=== PATIENT | female | born 1975 | race Hispanic/Latino ===

== ENCOUNTER 2017-02-14 15:57 | Inpatient (IN) | payer MEDICAID, OTHER ==
[2017-02-14 15:58] VITALS: BMI 25.6
[2017-02-14 17:22] LABS: BASO # 0.1 K/uL (0.0-0.2); BASO % 0.9 % (0.0-2.0); EOS # 0.2 K/uL (0.0-0.7); EOS % 2.5 % (0.0-4.0); HEMATOCRIT 39.2 % (34.0-47.0); LYMPH # 2.5 K/uL (1.0-4.3); LYMPH % 28.2 % (20.0-40.0); MEAN CELL VOLUME 86.7 fL (81.0-99.0); MEAN CORPUSCULAR HEMOGLOBIN 29.9 pg (27.0-31.0); MEAN CORPUSCULAR HGB CONC 34.5 g/dL (33.0-37.0); MONO # 0.9 K/uL (0.0-0.8); MONO % 9.7 % (0.0-10.0); RED CELL DISTRIBUTION WIDTH 13.3 % (11.5-14.5); WHITE BLOOD COUNT 8.9 K/uL (4.8-10.8)
[2017-02-14 17:39] LABS: CHLORIDE 92 mmol/L (98-107); POTASSIUM 3.5 mmol/L (3.6-5.2); SODIUM 133 mmol/L (132-148)
[2017-02-14 17:41] LABS: GFR AFRICAN-AMERICAN > 60
[2017-02-14 17:42] LABS: ALB/GLOB RATIO 1.3 (1.0-2.1); ALKALINE PHOSPHATASE 77 U/L (38-126); ALT/SGPT 45 U/L (9-52); AST/SGOT 35 U/L (14-36); BILIRUBIN,TOTAL 0.7 mg/dL (0.2-1.3); BLOOD UREA NITROGEN 9 mg/dL (7-17); CALCIUM 8.8 mg/dl (8.6-10.4); CARBON DIOXIDE 32 mmol/L (22-30); GLUCOSE,RANDOM 100 mg/dL (65-105); TOTAL PROTEIN 7.2 g/dL (6.3-8.3)
[2017-02-14 17:43] LABS: ALCOHOL SERUM < 10 mg/dl (0-10)
[2017-02-14 17:54] LABS: RBC URINE < 1 /hpf (0-3); URINE BACTERIA OCC (<OCC); URINE BILIRUBIN NEGATIVE (NEGATIVE); URINE BLOOD 1+ (NEGATIVE); URINE COLOR Yellow (YELLOW); URINE GLUCOSE (UA) NORMAL (Normal); URINE KETONE NEGATIVE (NEGATIVE); URINE LEUKOCYTE ESTERASE NEG Leu/uL (Negative); URINE PROTEIN NEGATIVE (NEGATIVE); URINE UROBILINOGEN NORMAL mg/dL (0.2-1.0); WBC URINE 1 /hpf (0-5)
--- NOTE | 2017-02-14 18:09 | C.PDOC ---
History Of Present Illness 41 y/o female with Hx of poly substance abuse and HTN presents to ED feeling suicidal and wants to cut herself. Patient states she has never cut herself before and states she wants to do it because she lost her job and apartment. Patient also reports she used Heroin after 6 months of sobriety, last used yesterday. Patient denies fever, headache, sob, n/v, abdominal pain or any other complaints at this time. Time Seen by Provider: 02/14/17 16:38 Chief Complaint (Nursing): Psychiatric Evaluation History Per: Patient History/Exam Limitations: no limitations Onset/Duration Of Symptoms: Days Current Symptoms Are (Timing): Still Present Suicide/Self Injury Attempted (Context): None Past Medical History Reviewed: Historical Data, Nursing Documentation, Vital Signs Vital Signs: Last Vital Signs Temp 97.9 F 02/14/17 16:09 Pulse 89 02/14/17 16:09 Resp 20 02/14/17 16:09 BP 129/87 02/14/17 16:09 Pulse Ox 98 02/14/17 18:12 - Medical History PMH: Anxiety, Depression, HTN Surgical History: No Surg Hx - [facility] Procedures APPLICATION OF SPLINT (05/06/13) CL FX REDUC-FINGER (05/06/13) DETOXIFICATION SERVICES FOR SUBSTANCE ABUSE TREATMENT (02/24/16) ENDOMETRIAL ABLATION (01/24/13) GROUP PSYCHOTHERAPY (02/24/16) HYSTEROSCOPY (01/24/13) INDIVIDUAL PSYCHOTHERAPY, SUPPORTIVE (12/08/15) MEDS MGMT FOR SUBSTANCE ABUSE TREATMENT, OTH REPL MED (02/24/16) NEBULIZER THERAPY (02/09/13) Family History: States: No Known Family Hx - Social History Hx Tobacco Use: Yes Hx Alcohol Use: Yes Hx Substance Use: Yes - Immunization History Hx Tetanus Toxoid Vaccination: Yes Hx Influenza Vaccination: No Hx Pneumococcal Vaccination: No Review Of Systems Except As Marked, All Systems Reviewed And Found Negative. Constitutional: Negative for: Fever, Chills Cardiovascular: Negative for: Chest Pain Respiratory: Negative for: Shortness of Breath Gastrointestinal: Negative for: Nausea, Vomiting Skin: Negative for: Rash Neurological: Negative for: Weakness, Numbness Psych: Positive for: Suicidal ideation Physical Exam - Physical Exam Appears: Non-toxic, Other (disheveled ) Skin: Normal Color, Warm, Dry, No Rash Head: Atraumatic, Normacephalic Eye(s): bilateral: Normal Inspection Oral Mucosa: Moist Neck: Normal ROM, Supple Chest: Symmetrical Cardiovascular: Rhythm Regular, No Murmur Respiratory: Normal Breath Sounds, No Rales, No Rhonchi, No Wheezing Gastrointestinal/Abdominal: Soft, No Tenderness, No Guarding, No Rebound Neurological/Psych: Oriented x3 ED Course And Treatment - Laboratory Results Result Diagrams: 02/14/17 17:14 02/14/17 17:14 O2 Sat by Pulse Oximetry: 98 (RA) Pulse Ox Interpretation: Normal Medical Decision Making Medical Decision Making: Plan: Blood work Request crisis evaluation Disposition - Disposition Disposition: HOSPITALIZED Disposition Time: 18:42 Condition: GUARDED Forms: [facility] (Irish) - Clinical Impression Clinical Impression: Opioid abuse, Moderate major depression, single episode - Scribe Statement The provider has reviewed the documentation as recorded by the Scribe Dianelys Sotelo All medical record entries made by the Scribe were at my direction and personally dictated by me. I have reviewed the chart and agree that the record accurately reflects my personal performance of the history, physical exam, medical decision making, and the department course for this patient. I have also personally directed, reviewed, and agree with the discharge instructions and disposition. Decision To Admit - Pt Status Changed To: Hospital Disposition Of: Inpatient - Admit Certification Admit to Inpatient:: After my assessment, the patient will require hospitalization for at least two midnights. This is because of the severity of symptoms shown, intensity of services needed, and/or the medical risk in this patient being treated as an outpatient. - InPatient: Physician Admission Certification: I certify that this patient requires 2 or more midnights of care for the following reason:: needs inpatient psych - . Bed Request Type: Psychiatry Admitting Physician: Priscilla Woodward Patient Diagnosis: Opioid abuse, Moderate major depression, single episode
[2017-02-14] MEDS ORDERED: Aluminum Hydroxide/Magnesium Hydroxide Susp (30 mL) PO PRN (21:37)
--- NOTE | 2017-02-14 22:31 | PCM.BM ---
<Myah Haywood - Last Filed: 02/14/17 22:29> Treatment Plan Problems - Problems identified on initial assessmt Depression Date Initiated: 02/14/17 Time Initiated: 20:45 Assessment reference: NA Status: Active Substance Abuse Date Initiated: 02/14/17 Time Initiated: 20:45 Assessment reference: NA Status: Active Treatment assets and liabiliti Patient Assests: adapts well, cooperative, ADL independent, physically healthy, negotiates basic needs, cognitively intact Patient Liabilities: live alone (Homeless), financial problems, poor support system, substance abuse (Opiates) - Milieu Protocol Maintain good personal hygiene: daily Encourage regular showers, daily Remind patient to perform daily oral care, daily Assist patient to perform ADL's (Self) , other Assist patient to perform ADL's Conduct patient checks and document Observation sheet: Q15 minutes (Safety) Maintain personal safety: every shift Educate patient to report safety concerns to staff, every shift Monitor environment for contraband/sharps Medication safety: Monitor for expected outcome, potential side effects: every shift, Assess barriers to learning: every shift, Assess readiness for medication education: every shift <Lisa Casas - Last Filed: 02/16/17 11:29> Family Contact Family involvement: Famliy/SO not involved - Goals for Treatment Patient goals for treatment: "I want to go back to AA/NA Meetings." Discharge/Continuing Care - Education Needs Education Needs: Patient Medication, Patient Coping Skills, Patient Placement options, Patient Community resources - Discharge Discharge Criteria: Tolerates medication w/o severe side effects, Free of Suicidal thoughts, No longer exhibiting s/s of withdrawal Discharge to:: Custodial - Treatment Team Participation Discussed with Family/SO: No Was Patient/Family/SO present at Treatment Team Meeting: Yes <Nicolasa Whiting - Last Filed: 02/16/17 11:31> - Diagnosis (1) Bipolar disorder, current episode mixed, moderate Status: Acute Interventions: 02/16/17 11:30 * Assess/adjust medications daily and /or as needed * See patient on an individual basis 7x/week to assess level of manic behaviors and stability * Discuss risks, benefits, side effects and alternatives of medications * (2) Opioid dependence Status: Acute Interventions: 02/16/17 11:30 * Assess 7x/week regarding severity of withdrawal * Educate regarding risks, benefits, side effects and alternatives of medications * Use Motivational Interviewing for abstinence * Use CBT for relapse prevention * Medication management for withdrawal symptoms * Encourage medication assisted treatment *
--- NOTE | 2017-02-15 09:48 | PCM.PSYCH ---
Initial Psychiatric Evaluation - Initial Psychiatric Evaluation Type of Admission: Voluntary Legal Status: Capacity Chief Complaint (in patient's own words): "I'm going downhill." History of Present Illness and Precipitating Events: Pt. is seen, chart reviewed, case discussed with staff. This is a 41 y/o female who presented to the ED feeling suicidal and wanting to cut herself. She claims she recently lost both her job and apartment and felt suicidal afterwards. Pt. is known from previous admission last year here at [facility] for JOSE and polysubstance use. Currently, pt. complains mostly of heightened anxiety and withdrawal sxs.--sweating, freezing, tearing, runny nose, and muscle aches. Pt. reports to using 5-10 bags of heroin intranasal daily for the past 2 weeks. She also drinks 1 pint of vodka mostly everyday. Last drink she had was 2 nights ago. Her longest period of sobriety was for 6 months. Pt. denies hx. of seizures of DTs. Pt. also reports to smoking 1 pack of cigarettes daily. Pt. says she went to 2 rehabs in the past, from May.-Jun. and then July-August. From there, she went to [place] in [place]. Currently, pt. reports to having depressed mood and decreased energy and concentration. Pt. reports poor sleep but denies visual and auditory hallucinations. Pt. admits to having racing thoughts and anxiety. Past Psych Hx: JOSE, depression, no denice or psychosis; no suicide attempts or admissions; admission at [facility] last year; 2 rehabs, [place] Fam Psych Hx: mother--depression, SI; both mother and father MedHx: HTN Social Hx: ; 3 children (4, 7, 9 y/o); lives alone in a alf; currently unemployed After care discussed. Pt. plans to go back into a alf after discharge. Current Medications: Active Medications Generic Name Dose Route Start Last Admin Trade Name Freq PRN Reason Stop Dose Admin Al Hydrox/Mg Hydrox/Simethicone 30 ml 02/14/17 21:37 Maalox 30 Ml PO TID PRN Indigestion / Heartburn Amlodipine Besylate 5 mg 02/15/17 10:00 Norvasc PO DAILY ROSEANNA Clonidine HCl 0.1 mg 02/14/17 21:37 Catapres PO Q8 PRN COWS Score More or Equal to 5 Hydroxyzine HCl 50 mg 02/14/17 21:48 Atarax PO Q6H PRN Anxiety Ibuprofen 600 mg 02/14/17 21:48 Motrin Tab PO Q6H PRN Pain, moderate (4-7) Loperamide HCl 2 mg 02/14/17 21:37 Imodium PO Q8 PRN Diarrhea Methadone HCl 10 mg 02/15/17 09:30 Methadone PO 02/19/17 09:29 Q24H ROSEANNA Taper Ondansetron HCl 4 mg 02/14/17 21:37 Zofran Tab PO Q8 PRN Nausea/Vomiting Pneumococcal Polyvalent Vaccine 0.5 ml 02/17/17 10:00 Pneumovax 23 Vaccine IM 02/17/17 10:01 .ONCE ONE Quetiapine Fumarate 200 mg 02/14/17 22:00 02/14/17 21:56 Seroquel PO 200 mg HS ROSEANNA Administration Trazodone HCl 100 mg 02/14/17 21:48 Desyrel PO HS PRN Insomnia Past Psychiatric History - Past Psychiatric History Previous Treatment History: Inpatient Pertinent Medical Hx (Current Medical&Sleep Prob, Allergies): Allergies Allergy/AdvReac Type Severity Reaction Status Date / Time No Known Allergies Allergy Verified 02/14/17 16:12 QUEtiapine [SEROquel] 200 mg PO HS 02/14/17 amLODIPine [Norvasc] 5 mg PO DAILY 02/14/17 hydroCHLOROthiazide 02/14/17 Review of Systems - Review of Systems All systems: reviewed and no additional remarkable complaints except - Neurological Neurological: UNREMARKABLE - Psychiatric Psychiatric: Anxiety, Depression, Hopelessness, Suicidal Ideation. absent: Auditory Hallucinations, Visual Hallucinations Mental Status Examination - Personal Presentation Personal Presentation: Looks stated age - Affect Affect: Constricted - Motor Activity Motor Activity: Calm - Reliability in Providing Information Reliability in Providing Information: Good - Speech Speech: Organized - Mood Mood: Depressed, Anxious - Formal Thought Process Formal Thought Process: No Impairment - Obsessions/Compulsions Obsessions: No Compulsions: No - Cognitive Functions Orientation: Person, Place, Situation, Time Sensorium: Alert Attention/Concentration: Attentive Abstract Thinking: [place] Estimate of Intelligence: Below average Judgement: Imparied, as evidence by: Poor judgement, Imparied, as evidence by: Lack of insight into illness Memory: Recent intact, as evidence by: Ability to recall events of the day - Risk Risk: Suicidal, Withdrawal, Diminished functioning - Strength & Assets Inventory Strength & Assets Inventory: Employment history - Limitations Limitations: Living alone (unemployed; lives in alf), Other DSM 5 DX - DSM 5 DSM 5 Diagnosis: Bipolar disorder mixed moderate Opioid use d/o-severe Opioid withdrawal - Recommended/Plan of Treatment Treatment Recommendations and Plan of Treatment: Bipolar disorder mixed moderate Support, psychoeducation, CBT Attend group activities daily Seroquel 300 mg PO HS Trazodone 100 mg PO HS PRN Opioid use d/o-severe CBT for relapse prevention Psychoeducation Supportive therapy, individual therapy Use [place] for abstinence Opioid withdrawal Support and psychoeducation daily Attend group activities daily Methadone taper Clonidine 0.1 mg PO Q8 PRN - Smoking Cessation Smoking Cessation Initiated: Yes
--- NOTE | 2017-02-15 15:07 | CARD ---
APPROVED REPORT EKG Measurement Heart [id number] <Conclusion> Normal sinus rhythm Septal infarct, age undetermined Cannot rule out Inferior infarct, age undetermined Abnormal ECG
--- NOTE | 2017-02-16 11:02 | PCM.PYCHPN ---
Psychiatric Progress Note - Psychiatric Progress Note Patient seen today, length of contact: 15 min Patient Chief Complaint: "I'm going downhill." Problems Identified/Issues Discussed: Patient seen and evaluated, chart reviewed and discussed with the nurse. Patient remained isolated, confined and withdrawn. Patient reports withdrawal symptoms including nausea, headaches, cramps and sweating. She reports depressed mood and feelings of hopelessness and helplessness. She is taking medication and denies any side effects. Supportive therapy and psychoeducation were given. Medication Change: Yes (methadone taper) Medical Record Reviewed: Yes Mental Status Examination - Cognitive Function Orientation: Person, Place, Situation, Time Memory: Intact Attention: WNL Concentration: Poor Association: WNL Fund of Knowledge: Poor - Mood Mood: Depressed, Anxious - Affect Affect: Constricted - Speech Speech: Soft - Formal Thought Process Formal Thought Process: No Impairment - Suicidal Ideation Suicidal Ideation: No - Homicidal Ideation Homicidal Ideation: No Goal/Treatment Plan - Goal/Treatment Plan Need for Continued Stay: Discharge may exacerbated symptoms, Severe functional impairment Progress Toward Problem(s) and Goals/Treatment Plan: Bipolar disorder mixed moderate Support, psychoeducation, CBT Attend group activities daily Seroquel 300 mg PO HS Trazodone 100 mg PO HS PRN Opioid use d/o-severe CBT for relapse prevention Psychoeducation Supportive therapy, individual therapy Use [place] for abstinence Opioid withdrawal Support and psychoeducation daily Attend group activities daily Methadone taper Clonidine 0.1 mg PO Q8 PRN - Smoking Cessation Smoking Cessation Initiated: No
[2017-02-17] MEDS ORDERED: Pneumococcal 23-Valent Vaccine IM ONE (10:00)
--- NOTE | 2017-02-17 11:20 | PCM.PYCHPN ---
Psychiatric Progress Note - Psychiatric Progress Note Patient seen today, length of contact: 15 min. Patient Chief Complaint: "I don't feel so great." Problems Identified/Issues Discussed: Pt. is seen, chart reviewed, and case discussed with staff. Pt. reports she has been "feeling pretty bad" since yesterday. She claims to have bad withdrawal sxs.--hot/cold, body aches. She states her mood fluctuates throughout the day and is unable to sleep. Pt. denies racing thoughts, anxiety, and agitation. She states the body sxs. are the main reason for her irritability at this time. Pt. also requests stool softener. Symptoms are improving, but needs more time to stabilize. No SEs from medications, risks discussed. After care discussed. She will be going to [facility] alf after discarge. Medication Change: No Medical Record Reviewed: Yes Mental Status Examination - Cognitive Function Orientation: Person, Place, Situation, Time Memory: Intact Attention: Poor Concentration: Poor Association: WNL Fund of Knowledge: WNL - Mood Mood: Depressed, Anxious - Affect Affect: Constricted - Speech Speech: Appropriate - Formal Thought Process Formal Thought Process: No Impairment - Suicidal Ideation Suicidal Ideation: No - Homicidal Ideation Homicidal Ideation: No Goal/Treatment Plan - Goal/Treatment Plan Need for Continued Stay: Remain at risks for inpatient hospitalization, Severe depression anxiety, Discharge may exacerbated symptoms Progress Toward Problem(s) and Goals/Treatment Plan: Bipolar disorder mixed moderate Support, psychoeducation, CBT Attend group activities daily Seroquel 200 mg PO HS Trazodone 100 mg PO HS PRN Opioid use d/o-severe CBT for relapse prevention Psychoeducation Supportive therapy, individual therapy Use [place] for abstinence Opioid withdrawal Support and psychoeducation daily Attend group activities daily Methadone taper Clonidine 0.1 mg PO Q8 PRN - Smoking Cessation Smoking Cessation Initiated: No
--- NOTE | 2017-02-18 10:56 | PCM.PYCHPN ---
Psychiatric Progress Note - Psychiatric Progress Note Patient seen today, length of contact: 15 min. Patient Chief Complaint: "I don't feel so great." Problems Identified/Issues Discussed: Pt. is seen, chart reviewed, and case discussed with staff. Pt. reports some improvement in her withdrawal symptoms but still reports body aches, abdominal cramps and headaches. She reports improvement in her mood but stil states her mood fluctuates throughout the day. Symptoms are improving, but needs more time to stabilize. No SEs from medications, risks discussed. After care discussed. She will be going to [facility] halfway after discarge. Medication Change: Yes (methadone taper, Start Zoloft) Medical Record Reviewed: Yes Mental Status Examination - Cognitive Function Orientation: Person, Place, Situation, Time Memory: Intact Attention: Poor Concentration: Poor Association: WNL Fund of Knowledge: WNL - Mood Mood: Depressed, Anxious - Affect Affect: Constricted - Speech Speech: Appropriate - Formal Thought Process Formal Thought Process: No Impairment - Suicidal Ideation Suicidal Ideation: No - Homicidal Ideation Homicidal Ideation: No Goal/Treatment Plan - Goal/Treatment Plan Need for Continued Stay: Remain at risks for inpatient hospitalization, Severe depression anxiety, Discharge may exacerbated symptoms Progress Toward Problem(s) and Goals/Treatment Plan: Bipolar disorder mixed moderate Support, psychoeducation, CBT Attend group activities daily Seroquel 200 mg PO HS Trazodone 100 mg PO HS PRN Zoloft 50 mg Opioid use d/o-severe CBT for relapse prevention Psychoeducation Supportive therapy, individual therapy Use [place] for abstinence Opioid withdrawal Support and psychoeducation daily Attend group activities daily Methadone taper Clonidine 0.1 mg PO Q8 PRN
--- NOTE | 2017-02-19 17:57 | PCM.PYCHPN ---
Psychiatric Progress Note - Psychiatric Progress Note Patient seen today, length of contact: 15 min. Patient Chief Complaint: I feel tired Problems Identified/Issues Discussed: Patient seen. Chart reviewed. Case discussed with staff. Issues related to illness and treatment were discussed with the patient. Reported compliant with treatment with no adverse affects. Tolerating treatment very well. Patient reported he feels much better but also feeling tired. Finished his detox successfully. Needs more time for stabilization. At the time of evaluation, patient was awake alert oriented 3, had no delusions , no auditory or visual hallucinations, no suicidal ideations or homicidal ideations. Medical Problems: Hypertension Diagnostic Results: Reviewed DSM 5 Symptoms Update: Improving with treatment Medication Change: No Medical Record Reviewed: Yes Mental Status Examination - Cognitive Function Orientation: Person, Place, Situation, Time Memory: Intact Attention: WNL Concentration: WNL Association: WNL Fund of Knowledge: [facility] Decription of patient's judgement and insights: Fair - Mood Mood: Other - Affect Affect: Other (Appropriate) - Speech Speech: Appropriate - Formal Thought Process Formal Thought Process: No Impairment Psychotic Thoughts and Behaviors: None - Suicidal Ideation Suicidal Ideation: No - Homicidal Ideation Homicidal Ideation: No Goal/Treatment Plan - Goal/Treatment Plan Need for Continued Stay: Remain at risks for inpatient hospitalization, Discharge may exacerbated symptoms, Severe functional impairment Progress Toward Problem(s) and Goals/Treatment Plan: Patient education Supportive therapy Continue treatment as before Patient will go to [facility] for follow-up care after discharge from the hospital. Estimated Date of D/C: 02/21/17 - Smoking Cessation Smoking Cessation Initiated: Yes
--- NOTE | 2017-02-20 15:59 | PCM.PYCHPN ---
Psychiatric Progress Note - Psychiatric Progress Note Patient seen today, length of contact: 15 min. Patient Chief Complaint: I still feels tired Problems Identified/Issues Discussed: Patient seen. Chart reviewed. Case discussed with staff. Issues related to illness and treatment were discussed with the patient. Reported compliant with treatment with no adverse affects. Tolerating treatment very well. Patient reported she feels much better but also stated feeling tired. Education provided about treatment. Patient agreed. Finished his detox successfully. Needs more time for stabilization. At the time of evaluation, patient was awake alert oriented 3, had no delusions , no auditory or visual hallucinations, no suicidal ideations or homicidal ideations. Medical Problems: Hypertension Diagnostic Results: Reviewed DSM 5 Symptoms Update: Improving with treatment Medication Change: No Medical Record Reviewed: Yes Mental Status Examination - Cognitive Function Orientation: Person, Place, Situation, Time Memory: Intact Attention: WNL Concentration: WNL Association: WNL Fund of Knowledge: [facility] Decription of patient's judgement and insights: Fair - Mood Mood: Depressed (Patient less than before) - Affect Affect: Depressed - Speech Speech: Appropriate - Formal Thought Process Formal Thought Process: No Impairment - Suicidal Ideation Suicidal Ideation: No - Homicidal Ideation Homicidal Ideation: No Goal/Treatment Plan - Goal/Treatment Plan Need for Continued Stay: Remain at risks for inpatient hospitalization, Discharge may exacerbated symptoms, Severe functional impairment Progress Toward Problem(s) and Goals/Treatment Plan: Patient education Supportive therapy Continue treatment as before Patient will go to [facility] for follow-up care after discharge from the hospital. Estimated Date of D/C: 02/21/17 - Smoking Cessation Smoking Cessation Initiated: Yes
--- NOTE | 2017-02-21 14:36 | PCM.PYCHPN ---
Psychiatric Progress Note - Psychiatric Progress Note Patient seen today, length of contact: 15 min. Patient Chief Complaint: "Still feeling depressed" Problems Identified/Issues Discussed: The pt is seen, chart reviewed, case discussed with staff. The pt is compliant with medications and reports no side-effects. Patient complains of still feeling depressed, no other new symptoms After care discussed such as IOP ([facility], [facility]) DSM 5 Symptoms Update: Bipolar disorder mixed moderate Opioid use d/o-severe Opioid withdrawal Medication Change: No Medical Record Reviewed: Yes Mental Status Examination - Cognitive Function Orientation: Person, Place, Situation, Time Memory: Intact Attention: WNL Concentration: WNL Association: WNL Fund of Knowledge: WNL - Mood Mood: Depressed (Patient less than before) - Affect Affect: Depressed - Speech Speech: Appropriate - Formal Thought Process Formal Thought Process: No Impairment - Suicidal Ideation Suicidal Ideation: No - Homicidal Ideation Homicidal Ideation: No Goal/Treatment Plan - Goal/Treatment Plan Need for Continued Stay: Discharge may exacerbated symptoms Progress Toward Problem(s) and Goals/Treatment Plan: Continue medications Support and psychoeducation daily Attend groups and activities daily After care planning done - [facility] Estimated Date of D/C: 02/22/17 - Smoking Cessation Smoking Cessation Initiated: No
[2017-02-22 07:50] VITALS: O2SAT 95
--- NOTE | 2017-02-22 13:11 | PCM.PYCHPN ---
Psychiatric Progress Note - Psychiatric Progress Note Patient seen today, length of contact: 15 min. Patient Chief Complaint: I feel little better but still I'm depressed. Problems Identified/Issues Discussed: Patient seen. Chart reviewed. Case discussed with staff. Issues related to illness and treatment were discussed with the patient. Reported compliant with treatment with no adverse affects. Tolerating treatment very well. Patient reported feeling better but still feels depressed. Finished his detox successfully. Needs more time for stabilization. At the time of evaluation, patient was awake alert oriented 3, had no delusions , no auditory or visual hallucinations, no suicidal ideations or homicidal ideations. Medical Problems: Hypertension Diagnostic Results: Reviewed DSM 5 Symptoms Update: Improving with treatment Medication Change: Yes (Dose of sertraline increased to 100 mg) Medical Record Reviewed: Yes Mental Status Examination - Cognitive Function Orientation: Person, Place, Situation, Time Memory: Intact Attention: WNL Concentration: WNL Association: WN Fund of Knowledge: [facility] Decription of patient's judgement and insights: Fair - Mood Mood: Depressed (Less than before) - Affect Affect: Other (Appropriate) - Speech Speech: Appropriate - Formal Thought Process Formal Thought Process: No Impairment - Suicidal Ideation Suicidal Ideation: No - Homicidal Ideation Homicidal Ideation: No Goal/Treatment Plan - Goal/Treatment Plan Need for Continued Stay: Remain at risks for inpatient hospitalization, Discharge may exacerbated symptoms, Severe functional impairment Progress Toward Problem(s) and Goals/Treatment Plan: Patient education Supportive therapy Will increase the dose of sertraline to 100 mg. Patient agreed. Continue rest of the treatment as before. Patient [facility] for [facility]-up care after discharge from the hospital. Estimated Date of D/C: 02/23/17 - Smoking Cessation Smoking Cessation Initiated: Yes
--- NOTE | 2017-02-23 09:42 | PCM.BM ---
<RamirezLisa Soto - Last Filed: 02/23/17 09:34> Treatment Plan Problems - Problems identified on initial assessmt Depression Date Initiated: 02/14/17 Time Initiated: 20:45 Assessment reference: NA Status: Active Substance Abuse Date Initiated: 02/14/17 Time Initiated: 20:45 Assessment reference: NA Status: Active Treatment assets and liabiliti Patient Assests: adapts well, cooperative, ADL independent, physically healthy, negotiates basic needs, cognitively intact Patient Liabilities: live alone (Homeless), financial problems, poor support system, substance abuse (Opiates) - Milieu Protocol Maintain good personal hygiene: daily Encourage regular showers, daily Remind patient to perform daily oral care, daily Assist patient to perform ADL's (Self) , other Assist patient to perform ADL's Conduct patient checks and document Observation sheet: Q15 minutes (Safety) Maintain personal safety: every shift Educate patient to report safety concerns to staff, every shift Monitor environment for contraband/sharps Medication safety: Monitor for expected outcome, potential side effects: every shift, Assess barriers to learning: every shift, Assess readiness for medication education: every shift Milieu Narrative: Patient education Supportive therapy Will increase the dose of sertraline to 100 mg. Patient agreed. Continue rest of the treatment as before. Patient will go [facility] for [facility]-up care after discharge from the hospital. Family Contact Family involvement: Miy/SO not involved - Goals for Treatment Patient goals for treatment: "I want to go back to AA/NA Meetings." Discharge/Continuing Care - Education Needs Education Needs: Patient Medication, Patient Coping Skills, Patient Placement options, Patient Community resources - Discharge Discharge Criteria: Tolerates medication w/o severe side effects, Free of Suicidal thoughts, No longer exhibiting s/s of withdrawal Discharge to:: Group Home - Treatment Team Participation Patient/Family/SO Statement: Patient education Supportive therapy Will increase the dose of sertraline to 100 mg. Patient agreed. Continue rest of the treatment as before. Patient will go to [facility] for follow-up care after discharge from the hospital. Discussed with Family/SO: No Was Patient/Family/SO present at Treatment Team Meeting: Yes Treatment Plan Review Patient participation: Yes Family/SO/Caregiver participation: No - Problem Depression Date Initiated: 02/23/17 Time Initiated: 09:42 Progress toward outcomes: unchanged Substance Abuse Date Initiated: 02/23/17 Time Initiated: 09:42 Progress toward outcomes: improved <Saloni Reddy - Last Filed: 02/23/17 11:22> Treatment Plan Review - Discharge / Continuing Care Discharge to:: Home Behavioral Health Services: Intensive Outpatient Health Needs: Medications/Rx, Educational <Solitario Zaldivar - Last Filed: 02/25/17 09:55> - Diagnosis (1) Bipolar disorder, current episode mixed, moderate Status: Acute Interventions: 02/16/17 11:30 * * Assess/adjust medications daily and /or as needed * See patient on an individual basis 7x/week to assess level of manic behaviors and stability * Discuss risks, benefits, side effects and alternatives of medications * 02/25/17 09:55
--- NOTE | 2017-02-23 13:26 | PCM.PYCHPN ---
Psychiatric Progress Note - Psychiatric Progress Note Patient seen today, length of contact: 15 min. Patient Chief Complaint: I feel little better but still I feel a lot of anxiety. Problems Identified/Issues Discussed: Patient seen. Chart reviewed. Case discussed with staff. Issues related to illness and treatment were discussed with the patient. Reported compliant with treatment with no adverse affects. Tolerating treatment very well. Patient reported feeling better but still feels anxiety. Will increase the dose of Neurontin to 300 mg 3 times a day from 2 times a day and also will increase the dose of sertraline to 150 mg. Patient agreed. Finished her detox successfully. Needs more time for stabilization. At the time of evaluation, patient was awake alert oriented 3, had no delusions , no auditory or visual hallucinations, no suicidal ideations or homicidal ideations. Medical Problems: Hypertension Diagnostic Results: Reviewed DSM 5 Symptoms Update: Improving with treatment Medication Change: Yes (Dose of gabapentin increased to 300 mg 3 times a day and sertraline increas) Medical Record Reviewed: Yes Mental Status Examination - Cognitive Function Orientation: Person, Place, Situation, Time Memory: Intact Attention: WNL Concentration: WNL Association: WNL Fund of Knowledge: [facility] Decription of patient's judgement and insights: Fair - Mood Mood: Depressed (Less than before), Anxious - Affect Affect: Other (Appropriate) - Speech Speech: Appropriate - Formal Thought Process Formal Thought Process: No Impairment Psychotic Thoughts and Behaviors: None - Suicidal Ideation Suicidal Ideation: No - Homicidal Ideation Homicidal Ideation: No Goal/Treatment Plan - Goal/Treatment Plan Need for Continued Stay: Remain at risks for inpatient hospitalization, Discharge may exacerbated symptoms, Severe functional impairment Progress Toward Problem(s) and Goals/Treatment Plan: Patient education Supportive therapy Will increase the dose of sertraline to 150 mg. we'll increase the dose of gabapentin to 300 mg 3 times a day. Patient agreed. Continue rest of the treatment as before. Patient will go to [facility] for follow-up care after discharge from the hospital. Estimated Date of D/C: 02/25/17 - Smoking Cessation Smoking Cessation Initiated: Yes
[2017-02-24 08:01] VITALS: BP 103/60; PULSE 61; RESP 20; TEMP 98.6
--- NOTE | 2017-02-24 15:09 | PCM.PYCHDC ---
Mental Status Examination - Mental Status Examination Orientation: Person, Place, Situation, Time Memory: Intact Mood: Neutral Description of patient's judgement and insight: Fair Psychotic Thoughts and Behaviors: None Discharge Summary - Discharge Note Consultations:: List each consultation separately and include: 1. Reason for request. 2. Findings. 3. Follow-up Summary of Hospital Course include:: 1. Description of specific treatment plan utilized for patients during their course of treatmen. 2. Summarize the time- course for resolution of acute symptoms and/or regressed behaviors. 3. Describe issues identified and worked on during hospitalization. 4. Describe medication utilized. 5. Describe medical problems identified and treated. 6. Reassessment of suicide risk - Final Diagnosis (DSM 5) Condition upon Discharge: GUARDED Disposition: HOME/ ROUTINE Follow-up Treatment Plan: Patient education Supportive therapy Will increase the dose of sertraline to 150 mg. we'll increase the dose of gabapentin to 300 mg 3 times a day. Patient agreed. Continue rest of the treatment as before. Patient will go to [facility] for follow-up care after discharge from the hospital. Prescriptions/Medication Reconciliation: amLODIPine [Norvasc] 5 mg PO DAILY #30 tab Gabapentin [Neurontin] 300 mg PO TID #90 cap QUEtiapine [SEROquel] 200 mg PO HS #30 tab Sertraline [Zoloft] 100 mg PO DAILY #30 tab traZODone [Desyrel] 100 mg PO HS PRN #30 tab PRN Reason: Insomnia
--- NOTE | 2017-02-25 17:00 | PCM.PYCHDC ---
Mental Status Examination - Mental Status Examination Orientation: Person, Place, Situation, Time Memory: Intact Mood: Neutral Affect: Other (Appropriate) Speech: Appropriate Attention: WNL Concentration: WNL Association: WNL Fund of Knowledge: WNL Formal Thought Process: No Impairment Description of patient's judgement and insight: Fair Psychotic Thoughts and Behaviors: None Suicidal Ideation: No Current Homicidal Ideation?: No Discharge Summary - Discharge Note Reason for Hospitalization: Bipolar disorder Laboratory Data: Reviewed Consultations:: List each consultation separately and include: 1. Reason for request. 2. Findings. 3. Follow-up Summary of Hospital Course include:: 1. Description of specific treatment plan utilized for patients during their course of treatmen. 2. Summarize the time- course for resolution of acute symptoms and/or regressed behaviors. 3. Describe issues identified and worked on during hospitalization. 4. Describe medication utilized. 5. Describe medical problems identified and treated. 6. Reassessment of suicide risk Summary of Hospital Course: Patient was admitted for the treatment of bipolar disorder. She was started on medications including gabapentin sertraline, Seroquel and other when necessary medications. With the above treatment patient started feeling better. Patient was stable today and was ready for discharge. At the time of evaluation and discharge, patient was awake alert oriented 3, had no delusions, no auditory or visual hallucinations, no suicidal ideations or homicidal ideations. Patient was discharged in a stable condition. - Diagnosis (1) Bipolar disorder, current episode mixed, moderate Status: Acute - Final Diagnosis (DSM 5) Condition upon Discharge: GUARDED Disposition: HOME/ ROUTINE Follow-up Treatment Plan: Patient will go to [facility] for follow-up care after discharge from the hospital. Prescriptions/Medication Reconciliation: amLODIPine [Norvasc] 5 mg PO DAILY #30 tab Gabapentin [Neurontin] 300 mg PO TID #90 cap QUEtiapine [SEROquel] 200 mg PO HS #30 tab Sertraline [Zoloft] 100 mg PO DAILY #30 tab traZODone [Desyrel] 100 mg PO HS PRN #30 tab PRN Reason: Insomnia - Smoking Cessation Smoking Cessation Medication prescribed: No - Antipsychotic Medications Pt discharged on 2 or more routine antipsychotic medications: No
== END 2017-02-24 11:30 | disposition home or self-care (01) | DRG 430 ==
LOC: C.ER 15:57 → C.5E 18:43 → C.9E 19:14 → C.5E 20:24
PROVIDERS: ADMIT Psychiatry & Neurology Psychiatry; ATTEND Psychiatry & Neurology Psychiatry
PROC: GZ3ZZZZ Medication Management (ICD-10-PCS; principal; 2017-02-14)
PROC: HZ59ZZZ Individual Psychotherapy for Substance Abuse Treatment, Supportive (ICD-10-PCS; 2017-02-14)
PROC: GZHZZZZ Group Psychotherapy (ICD-10-PCS; 2017-02-14)
PROC: GZ56ZZZ Individual Psychotherapy, Supportive (ICD-10-PCS; 2017-02-14)
PROC: HZ2ZZZZ Detoxification Services for Substance Abuse Treatment (ICD-10-PCS; 2017-02-14)
DX: F31.62 Bipolar disorder, current episode mixed, moderate (principal); R45.851 Suicidal ideations; F11.23 Opioid dependence with withdrawal; F41.1 Generalized anxiety disorder; F17.210 Nicotine dependence, cigarettes, uncomplicated; I10 Essential (primary) hypertension

== ENCOUNTER 2017-04-14 08:28 | Emergency (ER) | payer OTHER ==
[2017-04-14 08:28] VITALS: BMI 25.6
[2017-04-14 08:37] VITALS: RESP 20; O2SAT 95
--- NOTE | 2017-04-14 09:21 | C.PDOC ---
History Of Present Illness 41 yr old female presents to the ER stating she woke up this morning with sudden pain, swelling and redness to the left lower extremity. Patient states she takes a "water pill" for swelling of bilateral legs. Patient reports she stopped taking the water pill 1 week ago because someone told her "it interacts with my methadone". Patient denies trauma, fever, chills, chest pain, SOB, nausea, vomiting, headache, weakness or numbness. Time Seen by Provider: 04/14/17 09:02 Chief Complaint (Nursing): Lower Extremity Problem/Injury History Per: Patient History/Exam Limitations: no limitations Onset/Duration Of Symptoms: Sudden Onset Current Symptoms Are (Timing): Still Present Recent travel outside of the [place]: No Past Medical History Reviewed: Historical Data, Nursing Documentation, Vital Signs Vital Signs: Last Vital Signs Temp 97.6 F 04/14/17 08:36 Pulse 71 04/14/17 08:36 Resp 20 04/14/17 08:36 BP 123/84 04/14/17 08:36 Pulse Ox 95 04/14/17 11:53 - Medical History PMH: Anxiety, Bronchitis, Depression, HTN Surgical History: - [facility] APPLICATION OF SPLINT (05/06/13) CL FX REDUC-FINGER (05/06/13) DETOXIFICATION SERVICES FOR SUBSTANCE ABUSE TREATMENT (02/14/17) ENDOMETRIAL ABLATION (01/24/13) GROUP PSYCHOTHERAPY (02/14/17) HYSTEROSCOPY (01/24/13) INDIV PSYCHOTHERAPY FOR SUBSTANCE ABUSE TREATMENT, SUPPORT (02/14/17) INDIVIDUAL PSYCHOTHERAPY, SUPPORTIVE (02/14/17) MEDICATION MANAGEMENT (02/14/17) MEDS MGMT FOR SUBSTANCE ABUSE TREATMENT, OTH REPL MED (02/24/16) NEBULIZER THERAPY (02/09/13) Family History: States: No Known Family Hx - Social History Hx Tobacco Use: Yes Hx Alcohol Use: Yes Hx Substance Use: Yes - Immunization History Hx Tetanus Toxoid Vaccination: Yes Hx Influenza Vaccination: No Hx Pneumococcal Vaccination: No Review Of Systems Except As Marked, All Systems Reviewed And Found Negative. Constitutional: Negative for: Fever, Chills Cardiovascular: Negative for: Chest Pain Respiratory: Negative for: Shortness of Breath Gastrointestinal: Negative for: Nausea, Vomiting Musculoskeletal: Positive for: Other ((+) Swelling, redness and pain to left lower extremity.) Neurological: Negative for: Weakness, Numbness, Headache Physical Exam - Physical Exam Appears: Non-toxic, No Acute Distress Skin: Warm, Dry, No Rash Head: Atraumatic, Normacephalic Cardiovascular: Rhythm Regular, No Murmur Respiratory: Normal Breath Sounds, No Rales, No Rhonchi, No Stridor, No Wheezing Extremity: Normal ROM, Calf Tenderness (Mild tenderness to left calf.), Swelling (Left lower leg), Other ((+) Left Lower Leg - Erythema. Warm to touch.) Pulses: Left Dorsalis Pedis: Normal, Right Dorsalis Pedis: Normal Neurological/Psych: Oriented x3, Normal Speech, Normal Motor, Normal Sensation ED Course And Treatment O2 Sat by Pulse Oximetry: 95 (RA) Pulse Ox Interpretation: Normal Medical Decision Making Medical Decision Making: PLAN: * Venous Duplex Progress: Venous Duplex scan results are negative for DVT. Disposition - Disposition Referrals: [facility] [Outside] Disposition: HOME/ ROUTINE Disposition Time: 11:38 Condition: GOOD Additional Instructions: Follow up with the medical doctor within 1-2 days without fail. return if worsened. 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 - Scribe Statement The provider has reviewed the documentation as recorded by the Scribe Barbara Beard All medical record entries made by the Chaoibrosalio were at my direction and personally dictated by me. I have reviewed the chart and agree that the record accurately reflects my personal performance of the history, physical exam, medical decision making, and the department course for this patient. I have also personally directed, reviewed, and agree with the discharge instructions and disposition.
[2017-04-14 12:04] VITALS: BP 125/85; PULSE 63; TEMP 97.3
== END 2017-04-14 12:03 | disposition home or self-care (01) ==
LOC: C.ER 08:28
DX: L03.116 Cellulitis of left lower limb (principal); I10 Essential (primary) hypertension; Z87.891 Personal history of nicotine dependence

== ENCOUNTER 2017-05-17 11:54 | Inpatient (IN) | payer MEDICAID, OTHER ==
[2017-05-17 11:54] VITALS: BMI 25.6
[2017-05-17 12:34] LABS: BASO # 0.1 K/uL (0.0-0.2); BASO % 0.8 % (0.0-2.0); EOS # 0.9 K/uL (0.0-0.7); EOS % 11.2 % (0.0-4.0); HEMATOCRIT 39.2 % (34.0-47.0); LYMPH % 25.1 % (20.0-40.0); MEAN CORPUSCULAR HEMOGLOBIN 29.2 pg (27.0-31.0); MEAN CORPUSCULAR HGB CONC 33.9 g/dL (33.0-37.0); MEAN PLATELET VOLUME 9.3 fL (7.2-11.7); MONO # 0.6 K/uL (0.0-0.8); MONO % 7.2 % (0.0-10.0); NRBC % 0.1 % (0.0-2.0); RED CELL DISTRIBUTION WIDTH 13.9 % (11.5-14.5); WHITE BLOOD COUNT 8.1 K/uL (4.8-10.8)
[2017-05-17 12:42] LABS: RBC URINE 2 /hpf (0-3); URINE BILIRUBIN NEGATIVE (NEGATIVE); URINE BLOOD NEGATIVE (NEGATIVE); URINE COLOR Yellow (YELLOW); URINE GLUCOSE (UA) NORMAL (Normal); URINE KETONE NEGATIVE (NEGATIVE); URINE LEUKOCYTE ESTERASE TRACE Leu/uL (Negative); URINE PROTEIN NEGATIVE (NEGATIVE); WBC URINE 4 /hpf (0-5)
[2017-05-17 12:47] LABS: ALB/GLOB RATIO 0.9 (1.0-2.1); ALCOHOL SERUM < 10 mg/dl (0-10); ALKALINE PHOSPHATASE 69 U/L (38-126); ALT/SGPT 39 U/L (9-52); AST/SGOT 21 U/L (14-36); BILIRUBIN,TOTAL 0.4 mg/dL (0.2-1.3); BLOOD UREA NITROGEN 12 mg/dL (7-17); CARBON DIOXIDE 24 mmol/L (22-30); CHLORIDE 102 mmol/L (98-107); GFR AFRICAN-AMERICAN > 60; GLUCOSE,RANDOM 83 mg/dL (65-105); POTASSIUM 3.7 mmol/L (3.6-5.2); SODIUM 134 mmol/L (132-148); TOTAL PROTEIN 8.1 g/dL (6.3-8.3)
--- NOTE | 2017-05-17 13:07 | C.PDOC ---
History Of Present Illness 42 y/o female with PMHx of HTN and Anxiety presents to ED for evaluation on depression with associated suicidal ideation for 2 weeks worse today. Patient states she was kicked out of methadone program 3 days ago and broke up with boyfriend yesterday. Patient complaints of lower back pain and denies suicidal plan, auditory hallucinations, homicidal ideation, direct injury, bowel/bladder incontinence or any other physical complaints at this time. Time Seen by Provider: 05/17/17 12:26 Chief Complaint (Nursing): Psychiatric Evaluation History Per: Patient History/Exam Limitations: no limitations Onset/Duration Of Symptoms: Days Current Symptoms Are (Timing): Still Present Suicide/Self Injury Attempted (Context): None Modifying Factor(s): None Associated Symptoms: Depression, Suicidal Thoughts. denies: Suicidal Plan Past Medical History Reviewed: Historical Data, Nursing Documentation, Vital Signs Vital Signs: Last Vital Signs Temp 97.9 F 05/17/17 12:08 Pulse 66 05/17/17 12:08 Resp 18 05/17/17 12:08 BP 143/92 H 05/17/17 12:08 Pulse Ox 99 05/17/17 13:11 - Medical History PMH: Anxiety, Bronchitis, Depression, HTN Surgical History: - [facility] Procedures APPLICATION OF SPLINT (05/06/13) CL FX REDUC-FINGER (05/06/13) DETOXIFICATION SERVICES FOR SUBSTANCE ABUSE TREATMENT (02/14/17) ENDOMETRIAL ABLATION (01/24/13) GROUP PSYCHOTHERAPY (02/14/17) HYSTEROSCOPY (01/24/13) INDIV PSYCHOTHERAPY FOR SUBSTANCE ABUSE TREATMENT, SUPPORT (02/14/17) INDIVIDUAL PSYCHOTHERAPY, SUPPORTIVE (02/14/17) MEDICATION MANAGEMENT (02/14/17) MEDS MGMT FOR SUBSTANCE ABUSE TREATMENT, OTH REPL MED (02/24/16) NEBULIZER THERAPY (02/09/13) Family History: States: No Known Family Hx - Social History Hx Tobacco Use: Yes Hx Alcohol Use: Yes Hx Substance Use: Yes (Heroin) - Immunization History Hx Tetanus Toxoid Vaccination: Yes Hx Influenza Vaccination: No Hx Pneumococcal Vaccination: No Review Of Systems Constitutional: Negative for: Fever, Chills Gastrointestinal: Negative for: Nausea, Vomiting, Abdominal Pain Genitourinary: Negative for: Dysuria, Incontinence, Hematuria Musculoskeletal: Positive for: Back Pain Skin: Negative for: Rash Neurological: Negative for: Weakness, Numbness Psych: Positive for: Depression, Suicidal ideation Physical Exam - Physical Exam Additional Physical Exam Comments: Constitutional: No acute distress. WDWN. Head: Normocephalic. Atraumatic. Eyes: PERRL. EOMI. ENT: Moist mucous membranes. Neck: Supple. Cardiovascular: Regular rate and rhythm. Chest: No tenderness. Respiratory: Clear to auscultation bilaterally. GI: Soft. Nontender. Nondistended. Normoactive bowel sounds. No rebound. No guarding. Back: Mild Paralumbar Tenderness Musculoskeletal: No tenderness or swelling of extremities. Skin: No rash. Neurologic: Alert, no focal deficit. Normal Motor. Normal sensation ED Course And Treatment - Laboratory Results Result Diagrams: 05/17/17 12:30 05/17/17 12:30 O2 Sat by Pulse Oximetry: 99 (RA) Pulse Ox Interpretation: Normal Medical Decision Making Medical Decision Making: Plan: Crisis evaluation. 1:1 ordered, Urine Drug screen 200 pm pt is medically cleared for psychiatric admission. accepted by Dr Whiting. 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 - Scribe Statement The provider has reviewed the documentation as recorded by the Chaoibrosalio Sotelo All medical record entries made by the Chaoibrosalio were at my direction and personally dictated by me. I have reviewed the chart and agree that the record accurately reflects my personal performance of the history, physical exam, medical decision making, and the department course for this patient. I have also personally directed, reviewed, and agree with the discharge instructions and disposition. Decision To Admit - Pt Status Changed To: Hospital Disposition Of: Inpatient - Admit Certification Admit to Inpatient:: After my assessment, the patient will require hospitalization for at least two midnights. This is because of the severity of symptoms shown, intensity of services needed, and/or the medical risk in this patient being treated as an outpatient. - InPatient: Physician Admission Certification: I certify that this patient requires 2 or more midnights of care for the following reason:: for psychiatric stabilization - . Bed Request Type: Psychiatry Admitting Physician: Nicolasa Whiting Patient Diagnosis: Depression, Opioid use disorder, moderate, dependence
--- NOTE | 2017-05-17 17:03 | PCM.BM ---
<Julius Leonard - Last Filed: 05/17/17 16:59> Treatment Plan Problems - Problems identified on initial assessmt Depression Date Initiated: 05/17/17 Time Initiated: 16:15 Assessment reference: NA Status: Active Opiates Abuse Date Initiated: 05/17/17 Time Initiated: 16:15 Assessment reference: NA Status: Active Treatment assets and liabiliti Patient Assests: adapts well, cooperative, ADL independent, physically healthy, negotiates basic needs, cognitively intact Patient Liabilities: poor support system, relationship conflicts - Milieu Protocol Maintain good personal hygiene: daily Encourage regular showers, daily Remind patient to perform daily oral care Maintain personal safety: every shift Educate patient to report safety concerns to staff, every shift Monitor environment for contraband/sharps Medication safety: Monitor for expected outcome, potential side effects: every shift, Assess barriers to learning: every shift, Assess readiness for medication education: every shift <Nicolasa Whiting - Last Filed: 05/18/17 11:35> - Diagnosis (1) Bipolar disorder, curr episode mixed, severe, w/o psychotic features Status: Acute Interventions: 05/18/17 11:34 * Assess/adjust medications daily and /or as needed * See patient on an individual basis 7x/week to assess level of manic behaviors and stability * Discuss risks, benefits, side effects and alternatives of medications * (2) Opioid use disorder, severe, dependence Status: Acute Interventions: 05/18/17 11:34 * Assess 7x/week regarding severity of withdrawal * Educate regarding risks, benefits, side effects and alternatives of medications * Use Motivational Interviewing for abstinence * Use CBT for relapse prevention * Medication management for withdrawal symptoms * Encourage medication assisted treatment * (3) Opioid withdrawal Status: Acute Interventions: 05/18/17 11:35 * Assess 7x/week regarding severity of withdrawal * Educate regarding risks, benefits, side effects and alternatives of medications * Use Motivational Interviewing for abstinence * Use CBT for relapse prevention * Medication management for withdrawal symptoms * Encourage medication assisted treatment *
[2017-05-17] MEDS ORDERED: Aluminum Hydroxide/Magnesium Hydroxide Susp (30 mL) PO PRN (22:16)
--- NOTE | 2017-05-18 11:27 | PCM.PSYCH ---
Initial Psychiatric Evaluation - Initial Psychiatric Evaluation Type of Admission: Voluntary Legal Status: Capacity Chief Complaint (in patient's own words): I was feeling depressed.' History of Present Illness and Precipitating Events: Pt is a 42 year old, CF who came to the ED due to increased depression and suicidal ideation. Pt has a long history of bipolar disorder, alcohol and opioid abuse. She was just discharged from few months ago. Pt reports that soon after the discharge she stopped taking her medications. However she reports that she started going to a methadone program. 2 weeks ago she was kicked out of the program as she abused some xanax. As per her she relapsed on heroin and started abusing 5-6 bags daily. She reports of increasingly depressed mood due to the holidays and not being able to see her children. She reports depressed mood and feelings of hopelessness and helplessness. She at times reports irritability, agitation and racing of thoughts. Patient reports withdrawal symptoms including sweating, headaches, anxiety, nausea and cramps. She denies any auditory or visual hallucinations or any psychotic symptoms. She reports that she is drinking less amounts of beers as compared to the last visit. PMH HTN Current Medications: Active Medications Generic Name Dose Route Start Last Admin Trade Name Freq PRN Reason Stop Dose Admin Al Hydrox/Mg Hydrox/Simethicone 30 ml 05/17/17 22:16 Maalox 30 Ml PO TID PRN Indigestion / Heartburn Amlodipine Besylate 5 mg 05/18/17 10:00 05/18/17 10:04 Norvasc PO 5 mg DAILY ROSEANNA Administration Hydroxyzine HCl 50 mg 05/17/17 17:00 05/18/17 08:39 Atarax PO 50 mg Q6H PRN Administration Anxiety Ibuprofen 400 mg 05/17/17 17:00 05/18/17 08:39 Motrin Tab PO 400 mg Q6H PRN Administration Pain, moderate (4-7) Loperamide HCl 2 mg 05/17/17 22:16 Imodium PO Q8 PRN Diarrhea Methadone HCl 15 mg 05/18/17 10:00 05/18/17 10:04 Methadone PO 05/21/17 09:59 15 mg DAILY ROSEANNA Administration Taper Nicotine 1 patch 05/18/17 10:00 05/18/17 10:05 Nicoderm Cq TD 1 patch DAILY ROSEANNA Administration Ondansetron HCl 4 mg 05/17/17 22:16 05/18/17 08:39 Zofran Tab PO 4 mg Q8 PRN Administration Nausea/Vomiting Pneumococcal Polyvalent Vaccine 0.5 ml 05/19/17 10:00 Pneumovax 23 Vaccine IM 05/19/17 10:01 .ONCE ONE Trazodone HCl 100 mg 05/17/17 17:00 Desyrel PO HS PRN Insomnia Past Psychiatric History - Past Psychiatric History Previous Treatment History: Inpatient Pertinent Medical Hx (Current Medical&Sleep Prob, Allergies): Allergies Allergy/AdvReac Type Severity Reaction Status Date / Time No Known Allergies Allergy Verified 05/17/17 12:06 amLODIPine [Norvasc] 5 mg PO DAILY #30 tab 02/24/17 Review of Systems - Review of Systems All systems: reviewed and no additional remarkable complaints except - Psychiatric Psychiatric: Anxiety, Irritability, Mood Swings, Suicidal Ideation Mental Status Examination - Personal Presentation Personal Presentation: Looks stated age - Affect Affect: Constricted, Depressed - Motor Activity Motor Activity: Calm - Reliability in Providing Information Reliability in Providing Information: Fair - Speech Speech: Organized - Mood Mood: Depressed, Anxious - Formal Thought Process Formal Thought Process: No Impairment - Obsessions/Compulsions Obsessions: No Compulsions: No - Cognitive Functions Orientation: Person, Place, Situation, Time Sensorium: Alert Attention/Concentration: Attentive Abstract Thinking: Panacea Estimate of Intelligence: Below average Judgement: Imparied, as evidence by: Poor judgement, Imparied, as evidence by: Lack of insight into illness - Risk Risk: Suicidal, Withdrawal, Diminished functioning DSM 5 DX - DSM 5 DSM 5 Diagnosis: Bipolar disorder depressed severe without psychotic features Opioid use disorder severe Opioid withdrawal Alcohol use disorder moderate - Recommended/Plan of Treatment Treatment Recommendations and Plan of Treatment: Bipolar disorder depressed severe without psychotic features CBT Psychoeducation Supportive therapy, group therapy, individual therapy Depakote 250 mg PO twice a day Trazodone 50 mg by mouth daily at bedtime Opioid use disorder severe CBT Psychoeducation Supportive therapy, individual therapy Use [place] for abstinence Opioid withdrawal CBT Psychoeducation Supportive therapy, individual therapy Clonidine when necessary Methadone taper Alcohol use disorder moderate CBT Psychoeducation Supportive therapy, individual therapy Use [place] for abstinence HTN Continue amlodipine
[2017-05-18] MEDS: Divalproex 250 mg DR Tab PO SCH (17:34)
[2017-05-19] MEDS ORDERED: Pneumococcal 23-Valent Vaccine IM ONE (10:00)
[2017-05-19] MEDS: Divalproex 250 mg DR Tab PO SCH ×2 (10:25→17:27)
--- NOTE | 2017-05-19 12:04 | PCM.PYCHPN ---
Psychiatric Progress Note - Psychiatric Progress Note Patient seen today, length of contact: 15 min Patient Chief Complaint: I was feeling depressed.' Problems Identified/Issues Discussed: Patient seen and evaluated, chart reviewed and discussed with the nurse. She reports depressed mood and feelings of hopelessness and helplessness. She still reports suicidal ideation without any plan. Patient remained isolated, confined and withdrawn. Patient reports withdrawal symptoms including nausea, headaches, cramps and sweating. Patient is compliant with medications and denies any side effects. Symptoms are improving but need more time to stabilize. Support and psychoeducation given. Medication Change: Yes (methadone taper) Medical Record Reviewed: Yes Mental Status Examination - Cognitive Function Orientation: Person, Place, Situation, Time Memory: Intact Attention: WNL Concentration: Poor Association: WNL Fund of Knowledge: Poor - Mood Mood: Depressed, Anxious - Affect Affect: Constricted, Depressed - Speech Speech: Soft - Formal Thought Process Formal Thought Process: No Impairment - Suicidal Ideation Suicidal Ideation: No - Homicidal Ideation Homicidal Ideation: No Goal/Treatment Plan - Goal/Treatment Plan Need for Continued Stay: Severe depression anxiety, Severe functional impairment Progress Toward Problem(s) and Goals/Treatment Plan: Bipolar disorder depressed severe without psychotic features CBT Psychoeducation Supportive therapy, group therapy, individual therapy Start Ceexa 10 mg PO Daily Depakote 250 mg PO twice a day Trazodone 50 mg by mouth daily at bedtime Opioid use disorder severe CBT Psychoeducation Supportive therapy, individual therapy Use [place] for abstinence Opioid withdrawal CBT Psychoeducation Supportive therapy, individual therapy Clonidine when necessary Methadone taper Alcohol use disorder moderate CBT Psychoeducation Supportive therapy, individual therapy Use [place] for abstinence HTN Continue amlodipine - Smoking Cessation Smoking Cessation Initiated: No
[2017-05-20] MEDS: Divalproex 250 mg DR Tab PO SCH ×2 (09:54→17:53)
--- NOTE | 2017-05-20 10:33 | PCM.PYCHPN ---
Psychiatric Progress Note - Psychiatric Progress Note Patient seen today, length of contact: 15 min Patient Chief Complaint: I was feeling depressed.' Problems Identified/Issues Discussed: Patient seen and evaluated, chart reviewed and discussed with the nurse. Today pt reports some improvement in her mood and reports improvement in her feelings of hopelessness and helplessness. She denies any suicidal ideation, however, she remained isolated, and withdrawn. Patient reports improvement in her withdrawal symptoms but reports including headaches, and sweating. Patient is compliant with medications and denies any side effects. Symptoms are improving but need more time to stabilize. Support and psychoeducation given. Medication Change: Yes (methadone taper) Medical Record Reviewed: Yes Mental Status Examination - Cognitive Function Orientation: Person, Place, Situation, Time Memory: Intact Attention: WNL Concentration: WNL Association: WNL Fund of Knowledge: Poor - Mood Mood: Depressed, Anxious - Affect Affect: Constricted, Depressed - Speech Speech: Soft - Formal Thought Process Formal Thought Process: No Impairment - Suicidal Ideation Suicidal Ideation: No - Homicidal Ideation Homicidal Ideation: No Goal/Treatment Plan - Goal/Treatment Plan Need for Continued Stay: Severe depression anxiety, Severe functional impairment Progress Toward Problem(s) and Goals/Treatment Plan: Bipolar disorder depressed severe without psychotic features CBT Psychoeducation Supportive therapy, group therapy, individual therapy Start Celexa 10 mg PO Daily Depakote 250 mg PO twice a day Trazodone 50 mg by mouth daily at bedtime Opioid use disorder severe CBT Psychoeducation Supportive therapy, individual therapy Use [place] for abstinence Opioid withdrawal CBT Psychoeducation Supportive therapy, individual therapy Clonidine when necessary Methadone taper Alcohol use disorder moderate CBT Psychoeducation Supportive therapy, individual therapy Use [place] for abstinence HTN Continue amlodipine - Smoking Cessation Smoking Cessation Initiated: No
[2017-05-21 06:46] VITALS: BP 107/68; PULSE 50; RESP 20; TEMP 98.6; O2SAT 94
[2017-05-21] MEDS: Divalproex 250 mg DR Tab PO SCH (09:18)
--- NOTE | 2017-05-21 10:46 | PCM.PYCHDC ---
Mental Status Examination - Mental Status Examination Orientation: Person, Place, Situation, Time Memory: Intact Mood: Neutral Affect: Broad Speech: Appropriate Attention: WNL Concentration: WNL Association: WNL Fund of Knowledge: WNL Formal Thought Process: No Impairment Description of patient's judgement and insight: Good /good/ Psychotic Thoughts and Behaviors: Patient was calm and cooperative, fair grooming Suicidal Ideation: No Current Homicidal Ideation?: No Plan: Denied suicidal and homicidal ideation intent and plan, no Access to guns or firearms Discharge Summary - Discharge Note Reason for Hospitalization: depression and opioid withdrawal HPI: Pt is a 42 year old, CF who came to the ED due to increased depression and suicidal ideation. Pt has a long history of bipolar disorder, alcohol and opioid abuse. She was just discharged from few months ago. Pt reports that soon after the discharge she stopped taking her medications. However she reports that she started going to a methadone program. 2 weeks ago she was kicked out of the program as she abused some xanax. As per her she relapsed on heroin and started abusing 5-6 bags daily. She reports of increasingly depressed mood due to the holidays and not being able to see her children. She reports depressed mood and feelings of hopelessness and helplessness. She at times reports irritability, agitation and racing of thoughts. Patient reports withdrawal symptoms including sweating, headaches, anxiety, nausea and cramps. She denies any auditory or visual hallucinations or any psychotic symptoms. She reports that she is drinking less amounts of beers as compared to the last visit. PMH HTN Laboratory Data: PLEASE SEE hpi Consultations:: List each consultation separately and include: 1. Reason for request. 2. Findings. 3. Follow-up Consultations: NONE Summary of Hospital Course include:: 1. Description of specific treatment plan utilized for patients during their course of treatmen. 2. Summarize the time- course for resolution of acute symptoms and/or regressed behaviors. 3. Describe issues identified and worked on during hospitalization. 4. Describe medication utilized. 5. Describe medical problems identified and treated. 6. Reassessment of suicide risk Summary of Hospital Course: The pt was admitted and started on detox treatment with psychotherapy, support, psychoeducation and medications. MA and CBT techniques were used. The pt was compliant with the treatment. The pt attended groups and activities, as well as milieu therapy. All the risks and benefits of medications were discussed and the patient understood and agreed. The pt improved with the treatment. Pt appreciate the treatment and care which was provided to him. At the time of d/c pt denied any depresive symptoms, manic symptoms. He denied any SI, HI, intent or plan. Pt denied any perceptual disturbances. He had behavioral issues. Psychoeducation was provided to the pt to be compliant with the medication, treatment plan and f/u plan after the discharge.~ After care discussed with the patient. - Diagnosis (1) Bipolar disorder, curr episode mixed, severe, w/o psychotic features Status: Resolved (2) Opioid abuse Status: Resolved (3) Opioid dependence Status: Resolved - Final Diagnosis (DSM 5) Condition upon Discharge: STABLE Disposition: HOME/ ROUTINE Follow-up Treatment Plan: PLEASE SEE DISCHARGE PLAN Prescriptions/Medication Reconciliation: amLODIPine [Norvasc] 5 mg PO DAILY #30 tab Citalopram [celeXA] 10 mg PO DAILY #30 tab Divalproex [Depakote DR] 250 mg PO BID #60 tcp QUEtiapine [SEROquel] 200 mg PO HS PRN #30 tab PRN Reason: Insomnia - Smoking Cessation Smoking Cessation Medication prescribed: Yes - Antipsychotic Medications Pt discharged on 2 or more routine antipsychotic medications: No
== END 2017-05-21 11:02 | disposition home or self-care (01) | DRG 430 ==
LOC: C.ER 11:54 → C.9E 14:09 → C.5E 14:52
PROVIDERS: ADMIT Psychiatry & Neurology Psychiatry; ATTEND Psychiatry & Neurology Psychiatry
PROC: 3E0234Z Introduction of Serum, Toxoid and Vaccine into Muscle, Percutaneous Approach (ICD-10-PCS; principal; 2017-05-19)
DX: F31.4 Bipolar disorder, current episode depressed, severe, without psychotic features (principal); R45.851 Suicidal ideations; F11.23 Opioid dependence with withdrawal; I10 Essential (primary) hypertension; Z79.899 Other long term (current) drug therapy; F41.9 Anxiety disorder, unspecified; Z23 Encounter for immunization; F10.20 Alcohol dependence, uncomplicated; Y90.0 Blood alcohol level of less than 20 mg/100 ml; F91.9 Conduct disorder, unspecified

== ENCOUNTER 2018-03-01 12:45 | Emergency (ER) | payer MEDICAID, OTHER ==
[2018-03-01 12:45] VITALS: BMI 35.7
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
[2018-03-01 14:36] LABS: BASO % 0.7 % (0.0-2.0); EOS # 0.1 K/uL (0.0-0.7); EOS % 1.2 % (0.0-4.0); HEMOGLOBIN 13.8 g/dL (11.0-16.0); LYMPH % 29.1 % (20.0-40.0); MEAN CELL VOLUME 85.8 fL (81.0-99.0); MEAN CORPUSCULAR HEMOGLOBIN 30.7 pg (27.0-31.0); MEAN CORPUSCULAR HGB CONC 35.8 g/dL (33.0-37.0); MEAN PLATELET VOLUME 8.9 fL (7.2-11.7); MONO # 0.6 K/uL (0.0-0.8); MONO % 8.4 % (0.0-10.0); NEUT # 4.2 K/uL (1.8-7.0); NEUT % 60.6 % (50.0-75.0); RBC 4.5 Mil/uL (3.80-5.20); RED CELL DISTRIBUTION WIDTH 13.4 % (11.5-14.5)
[2018-03-01 14:58] LABS: ALB/GLOB RATIO 1.2 (1.0-2.1); ALBUMIN 4.2 g/dL (3.5-5.0); ALT/SGPT 31 U/L (9-52); AST/SGOT 28 U/L (14-36); BLOOD UREA NITROGEN 13 mg/dL (7-17); CALCIUM 9.3 mg/dl (8.6-10.4); GFR NON-AFRICAN AMERICAN > 60
[2018-03-01] MEDS ORDERED: Potassium Chloride 20 mEq ER Tab PO ONE (15:19)
[2018-03-01] MEDS: Potassium Chloride 20 mEq/15 ml LIQ UD PO STA (15:19)
[2018-03-01 15:30] LABS: SQUAMOUS EPITHIAL 7 /hpf (0-5); URINE BACTERIA MANY (<OCC); URINE BILIRUBIN NEGATIVE (NEGATIVE); URINE BLOOD 1+ (NEGATIVE); URINE CLARITY Hazy (Clear); URINE COLOR Amber (YELLOW); URINE GLUCOSE (UA) NORMAL (Normal); URINE LEUKOCYTE ESTERASE NEG Leu/uL (Negative); URINE PROTEIN 1+ mg/dL (NEGATIVE)
[2018-03-01 15:53] LABS: BARBITURATES, UR NEGATIVE (NEGATIVE); BENZODIAZEPINES, UR NEGATIVE (NEGATIVE); PHENCYCLIDINE, UR NEGATIVE (NEGATIVE)
[2018-03-01 16:16] LABS: OPIATES, UR POSITIVE (NEGATIVE)
[2018-03-01 17:26] VITALS: BP 122/74; PULSE 78; RESP 20; TEMP 98.2; O2SAT 98
== END 2018-03-01 17:26 | disposition home or self-care (01) ==
LOC: C.ER 12:45
DX: F32.9 Major depressive disorder, single episode, unspecified (principal); N39.0 Urinary tract infection, site not specified; F11.10 Opioid abuse, uncomplicated; E87.6 Hypokalemia

== ENCOUNTER 2018-03-29 13:08 | Inpatient (IN) | payer MEDICAID ==
[2018-03-29 13:18] VITALS: BMI 35.0
--- NOTE | 2018-03-29 14:23 | C.PDOC ---
History Of Present Illness 42 year old female was a history of heroin abuse presents to the ED for evaluation of depression due to her mother's anniversary. Patient reports she is compliant with psychiatric medications except for Seroquel "because they made me too tired." She denies suicidal ideations, stating "I just want help." Patient is s/p recent discharge from [facility]. No other complaints at this time. Denies fever, nausea, vomiting, and any other associated symptoms. DEPRESSION DUE TO MOTHER'S ANNIVERSARY. COMPLIANCE W PSYCH MEDS EXCEPT SEROQUEL "BC THEY MADE ME TOO TIRED". +HEROIN ABUSE. SP RECENT DC FROM [place]. NO SI " I JUST WANT HELP" EXAM NAD PSYCH NO ACUTE INTOX, CALM COOPERATIVE NO ACUTE PSYCHOSIS REMAINDER NEG Time Seen by Provider: 03/29/18 13:28 Chief Complaint (Nursing): Psychiatric Evaluation History Per: Patient History/Exam Limitations: no limitations Past Medical History Reviewed: Historical Data, Nursing Documentation, Vital Signs Vital Signs: Last Vital Signs Temp 98.0 F 03/29/18 13:17 Pulse 80 03/29/18 13:17 Resp 18 03/29/18 13:17 BP 125/83 03/29/18 13:17 Pulse Ox 96 03/29/18 13:17 - Medical History PMH: Anxiety, Asthma, Bronchitis, Depression, HTN Denies: Diabetes, Hepatitis, HIV, Chronic Kidney Disease, Seizures, Sexually Transmitted Disease Surgical History: - [facility] Procedures APPLICATION OF SPLINT (05/06/13) CL FX REDUC-FINGER (05/06/13) DETOXIFICATION SERVICES FOR SUBSTANCE ABUSE TREATMENT (02/14/17) ENDOMETRIAL ABLATION (01/24/13) GROUP PSYCHOTHERAPY (02/14/17) HYSTEROSCOPY (01/24/13) INDIV PSYCHOTHERAPY FOR SUBSTANCE ABUSE TREATMENT, SUPPORT (02/14/17) INDIVIDUAL PSYCHOTHERAPY, SUPPORTIVE (02/14/17) INTRODUCTION OF SERUM/TOX/VACCINE INTO MUSCLE, PERC APPROACH (05/17/17) MEDICATION MANAGEMENT (02/14/17) MEDS MGMT FOR SUBSTANCE ABUSE TREATMENT, OTH REPL MED (02/24/16) NEBULIZER THERAPY (02/09/13) Family History: States: Unknown Family Hx - Social History Hx Tobacco Use: Yes Hx Alcohol Use: No Hx Substance Use: Yes - Immunization History Hx Tetanus Toxoid Vaccination: Yes Hx Influenza Vaccination: No Hx Pneumococcal Vaccination: No Review Of Systems Except As Marked, All Systems Reviewed And Found Negative. Constitutional: Negative for: Fever Gastrointestinal: Negative for: Nausea, Vomiting Psych: Positive for: Depression. Negative for: Suicidal ideation Physical Exam - Physical Exam Appears: Well, Non-toxic, No Acute Distress Skin: Normal Color, Warm, Dry Head: Atraumatic, Normacephalic Eye(s): bilateral: Normal Inspection Oral Mucosa: Moist Neck: Normal ROM, Supple Chest: Symmetrical, No Deformity Cardiovascular: Rhythm Regular, No Murmur Respiratory: Normal Breath Sounds, No Rales, No Rhonchi, No Wheezing, Other (NARD.) Gastrointestinal/Abdominal: Normal Exam, Soft, No Tenderness Neurological/Psych: Oriented x3, Other ((-) no acute intoxication. (+) calm. (+) cooperative. (-) no acute psychosis.) ED Course And Treatment - Laboratory Results Result Diagrams: 03/29/18 14:30 03/29/18 14:30 O2 Sat by Pulse Oximetry: 96 (RA) Pulse Ox Interpretation: Abnormal Progress - Re-Evaluation Re-evaluation Note: 03/29/18 15:40 MED CLEAR FOR CRISIS - Data Reviewed Data Reviewed: Lab, Old records Medical Decision Making Medical Decision Making: Plan: -Blood sent. -Urinalysis. Progress/Update: Admit to Dr. Rosado lorne for severe major depressive disorder. Disposition Counseled Patient/Family Regarding: Diagnosis - Disposition Disposition: HOSPITALIZED Disposition Time: 16:51 Condition: STABLE - POA Present On Arrival: None - Clinical Impression Clinical Impression: Depression, Polysubstance abuse - Scribe Statement The provider has reviewed the documentation as recorded by the Scribe (Ruth Abdi) Provider Attestation: All medical record entries made by the Scribe were at my direction and personally dictated by me. I have reviewed the chart and agree that the record accurately reflects my personal performance of the history, physical exam, med ical decision making, and the department course for this patient. I have also personally directed, reviewed, and agree with the discharge instructions and disposition.
[2018-03-29 14:36] LABS: BASO % 0.9 % (0.0-2.0); EOS # 0.2 K/uL (0.0-0.7); EOS % 2.9 % (0.0-4.0); HEMOGLOBIN 12.1 g/dL (11.0-16.0); LYMPH # 1.1 K/uL (1.0-4.3); LYMPH % 20.1 % (20.0-40.0); MEAN CORPUSCULAR HEMOGLOBIN 30.4 pg (27.0-31.0); MEAN CORPUSCULAR HGB CONC 34.5 g/dL (33.0-37.0); MEAN PLATELET VOLUME 8.7 fL (7.2-11.7); MONO # 0.4 K/uL (0.0-0.8); NEUT # 3.7 K/uL (1.8-7.0); NEUT % 68.1 % (50.0-75.0); NRBC % 0.1 % (0.0-2.0); RED CELL DISTRIBUTION WIDTH 13.8 % (11.5-14.5); WHITE BLOOD COUNT 5.5 K/uL (4.8-10.8)
[2018-03-29 15:04] LABS: ALB/GLOB RATIO 1.3 (1.0-2.1); ALBUMIN 3.4 g/dL (3.5-5.0); ALT/SGPT 21 U/L (9-52); AST/SGOT 13 U/L (14-36); BLOOD UREA NITROGEN 7 mg/dL (7-17); CALCIUM 8.3 mg/dl (8.6-10.4); GFR NON-AFRICAN AMERICAN > 60
[2018-03-29 15:30] LABS: SQUAMOUS EPITHIAL 6 /hpf (0-5); URINE BACTERIA RARE (<OCC); URINE BILIRUBIN NEGATIVE (NEGATIVE); URINE BLOOD NEGATIVE (NEGATIVE); URINE CLARITY Clear (Clear); URINE COLOR Yellow (YELLOW); URINE GLUCOSE (UA) 2+ mg/dL (Normal); URINE LEUKOCYTE ESTERASE NEG Leu/uL (Negative); URINE PROTEIN NEGATIVE (NEGATIVE); URINE UROBILINOGEN NORMAL mg/dL (0.2-1.0)
[2018-03-29 15:32] LABS: BARBITURATES, UR NEGATIVE (NEGATIVE); BENZODIAZEPINES, UR NEGATIVE (NEGATIVE); PHENCYCLIDINE, UR NEGATIVE (NEGATIVE)
[2018-03-29 15:36] LABS: OPIATES, UR POSITIVE (NEGATIVE)
--- NOTE | 2018-03-29 18:14 | PCM.BM ---
Treatment Plan Problems - Problems identified on initial assessmt Suicidal Ideation Date Initiated: 03/29/18 Time Initiated: 18:12 Assessment reference: NA Status: Monitor Substance Abuse Date Initiated: 03/29/18 Time Initiated: 18:12 Assessment reference: NA Status: Active (Heroin) Treatment assets and liabiliti Patient Assests: adapts well, cooperative, self-reliant, ADL independent, physically healthy, negotiates basic needs, cognitively intact Patient Liabilities: live alone, substance abuse (Heroin) - Milieu Protocol Maintain good personal hygiene: daily Encourage regular showers, daily Remind patient to perform daily oral care, daily Assist patient to perform ADL's Conduct patient checks and document Observation sheet: Q15 minutes Maintain personal safety: every shift Educate patient to report safety concerns to staff, every shift Monitor environment for contraband/sharps Medication safety: Monitor for expected outcome, potential side effects: every shift, Assess barriers to learning: every shift, Assess readiness for medication education: every shift
--- NOTE | 2018-03-30 10:38 | PCM.PSYCH ---
Initial Psychiatric Evaluation - Initial Psychiatric Evaluation Type of Admission: Voluntary Legal Status: Capacity Chief Complaint (in patient's own words): I relapsed on heroin and became increasingly depressed and suicidal.' History of Present Illness and Precipitating Events: Pt is a 42yr CF with previous history of opiate abuse disorder, depression, anxiety, panic disorder presented in the ER due suicidal ideation with a plan to overdose. She reports that she relapsed on heroin relapse and subsequent withdrawal secondary to depression from the anniversary of her mother's . Patient is a poor historian and seemed disoriented at the time of interview. She was previously in a methadone program but got kicked out because benzos were detected in her system for which she did not have a prescription. At the time she was on 190 mg of methadone and had been sober for months while in the program. She reports of depressed mood at times feelings of hopelessness and helplessness and poor sleep and poor appetite. She denies any manic symptoms. She denies any auditory or visual hallucinations or any psychotic symptoms. Patient reports withdrawal symptoms including abdominal cramps, anxiety, chills, yawning, headaches and sweating. Social hx: Patient is living with her boyfriend and she has 3 children. Her mother currently has custody of the children. Patient uses approximately 10 bags of heroin via IN route last used day before yesterday. Medical hx: HTN, depression, anxiety, opiate abuse disorder Allergies: Denies Surgery: 3x section Hospitalizations: PNA Family Hx: Mother had diabetes and heart disease Medications: Klonopin, Paxil, Remeron, Seroquel (not currently taking) Current Medications: Active Medications Generic Name Dose Route Start Last Admin Trade Name Freq PRN Reason Stop Dose Admin Hydroxyzine HCl 25 mg 03/29/18 22:30 03/30/18 06:20 Atarax PO 25 mg Q4H PRN Administration Anxiety Ibuprofen 400 mg 03/29/18 22:30 03/30/18 06:20 Motrin Tab PO 400 mg Q6H PRN Administration Pain, moderate (4-7) Lisinopril 10 mg 03/30/18 10:00 03/30/18 10:13 Zestril PO 10 mg DAILY ROSEANNA Administration Methadone HCl 15 mg 03/30/18 10:00 03/30/18 10:13 Methadone PO 04/02/18 09:59 15 mg Q24H ROSEANNA Administration Taper Mirtazapine 15 mg 03/29/18 22:45 03/29/18 22:50 Remeron PO 15 mg HS ROSEANNA Administration Trazodone HCl 50 mg 03/29/18 22:30 Desyrel PO HS PRN Insomnia Past Psychiatric History - Past Psychiatric History Previous Treatment History: Inpatient Pertinent Medical Hx (Current Medical&Sleep Prob, Allergies): Allergies Allergy/AdvReac Type Severity Reaction Status Date / Time codeine Allergy RASH Verified 03/29/18 13:13 Folic Acid 1 mg PO DAILY #14 tab 03/16/18 Lisinopril [Zestril] 10 mg PO DAILY #7 tab 03/16/18 Mirtazapine [Remeron Soltab] 45 mg PO HS #14 odt 03/16/18 Multivitamin Therapeutic Tab [Thera Tab] 1 tab PO 0800 #14 tab 03/16/18 Paroxetine HCl [Paxil] 40 mg PO HS #14 tablet 03/16/18 QUEtiapine [Seroquel] 100 mg PO AMHS #30 tab 03/16/18 clonazePAM [Klonopin] 1 mg PO BID PRN #30 tab 03/16/18 hydrOXYzine Pamoate [Vistaril] 50 mg PO BID PRN #30 cap 03/16/18 Review of Systems - Review of Systems All systems: reviewed and no additional remarkable complaints except - Psychiatric Psychiatric: Anxiety, Depression, Irritability, Suicidal Ideation Mental Status Examination - Personal Presentation Personal Presentation: Looks stated age - Affect Affect: Constricted, Depressed - Motor Activity Motor Activity: Calm - Reliability in Providing Information Reliability in Providing Information: Fair - Speech Speech: Organized - Mood Mood: Depressed, Anxious - Formal Thought Process Formal Thought Process: No Impairment - Obsessions/Compulsions Obsessions: No Compulsions: No - Cognitive Functions Orientation: Person, Place, Situation, Time Sensorium: Alert Attention/Concentration: Attentive Abstract Thinking: [place] Estimate of Intelligence: Below average Judgement: Imparied, as evidence by: Poor judgement, Imparied, as evidence by: Lack of insight into illness - Risk Risk: Suicidal, Withdrawal, Diminished functioning - Strength & Assets Inventory Strength & Assets Inventory: Employment status - Limitations Limitations: Living alone DSM 5 DX - DSM 5 DSM 5 Diagnosis: Major depressive disorder recurrent severe without psychotic features Opioid use disorder severe Opioid withdrawal - Recommended/Plan of Treatment Treatment Recommendations and Plan of Treatment: Major depressive disorder recurrent severe without psychotic features CBT Psychoeducation Supportive therapy, group therapy, individual therapy Trazodone 50 mg by mouth daily at bedtime Hydroxyzine 25 mg by mouth every 6 hours when necessary Gabapentin 100 mg po TID Remeron 15 mg PO QHS Opioid use disorder severe CBT Psychoeducation Supportive therapy, individual therapy Use DE for abstinence Opioid withdrawal CBT Psychoeducation Supportive therapy, individual therapy Clonidine when necessary Methadone taper - Smoking Cessation Smoking Cessation Initiated: No
--- NOTE | 2018-03-31 10:46 | PCM.PYCHPN ---
Psychiatric Progress Note - Psychiatric Progress Note Patient seen today, length of contact: 15 min Patient Chief Complaint: I relapsed on heroin.' Problems Identified/Issues Discussed: Patient seen and evaluated, chart reviewed and discussed with the nurse. She reports some improvement in her irritability and agitation. She reports some improvement in her depressed mood and anxiety. She reports some improvement in the withdrawal symptoms. She denies any hallucinations or paranoia. Patient is compliant with medications and denies any side effects. Symptoms are improving but need more time to stabilize. Support and psychoeducation given. Medication Change: Yes Medical Record Reviewed: Yes Mental Status Examination - Cognitive Function Orientation: Person, Place, Situation, Time Memory: Intact Attention: WNL Concentration: Poor Association: WNL Fund of Knowledge: Poor - Mood Mood: Depressed, Anxious - Affect Affect: Constricted, Depressed - Speech Speech: Soft - Formal Thought Process Formal Thought Process: No Impairment - Suicidal Ideation Suicidal Ideation: No - Homicidal Ideation Homicidal Ideation: No Goal/Treatment Plan - Goal/Treatment Plan Need for Continued Stay: Severe depression anxiety, Severe functional impairment Progress Toward Problem(s) and Goals/Treatment Plan: Major depressive disorder recurrent severe without psychotic features CBT Psychoeducation Supportive therapy, group therapy, individual therapy Trazodone 50 mg by mouth daily at bedtime Hydroxyzine 25 mg by mouth every 6 hours when necessary Gabapentin 100 mg po TID Remeron 15 mg PO QHS Opioid use disorder severe CBT Psychoeducation Supportive therapy, individual therapy Use ND for abstinence Opioid withdrawal CBT Psychoeducation Supportive therapy, individual therapy Clonidine when necessary Methadone taper - Smoking Cessation Smoking Cessation Initiated: No
[2018-04-01 07:08] VITALS: BP 114/75; PULSE 58; RESP 18; TEMP 98.3; O2SAT 96
--- NOTE | 2018-04-01 11:28 | PCM.PYCHDC ---
Mental Status Examination - Mental Status Examination Orientation: Person, Place, Situation, Time Memory: Intact Mood: Neutral Affect: Constricted Speech: Soft Attention: WNL Concentration: WNL Association: WNL Fund of Knowledge: WNL Formal Thought Process: No Impairment Description of patient's judgement and insight: good, fair Psychotic Thoughts and Behaviors: denies any AVH Suicidal Ideation: No Current Homicidal Ideation?: No Discharge Summary - Discharge Note Reason for Hospitalization: Pt is a 42yr CF with previous history of opiate abuse disorder, depression, anxiety, panic disorder presented in the ER due suicidal ideation with a plan to overdose. She reports that she relapsed on heroin relapse and subsequent withdrawal secondary to depression from the anniversary of her mother's . Patient is a poor historian and seemed disoriented at the time of interview. She was previously in a methadone program but got kicked out because benzos were detected in her system for which she did not have a prescription. At the time she was on 190 mg of methadone and had been sober for months while in the [facility]. She reports of depressed mood at times feelings of hopelessness and helplessness and poor sleep and poor appetite. She denies any manic symptoms. She denies any auditory or visual hallucinations or any psychotic symptoms. Patient reports withdrawal symptoms including abdominal cramps, anxiety, chills, yawning, headaches and sweating. Social hx: Patient is living with her boyfriend and she has 3 children. Her mother currently has custody of the children. Patient uses approximately 10 bags of heroin via IN route last used day before yesterday. Medical hx: HTN, depression, anxiety, opiate abuse disorder Allergies: Denies Surgery: 3x section Hospitalizations: PNA Family Hx: Mother had diabetes and heart disease Medications: Klonopin, Paxil, Remeron, Seroquel (not currently taking) Consultations:: List each consultation separately and include: 1. Reason for request. 2. Findings. 3. Follow-up Summary of Hospital Course include:: 1. Description of specific treatment plan utilized for patients during their course of treatmen. 2. Summarize the time- course for resolution of acute symptoms and/or regressed behaviors. 3. Describe issues identified and worked on during hospitalization. 4. Describe medication utilized. 5. Describe medical problems identified and treated. 6. Reassessment of suicide risk Summary of Hospital Course: During the course of her stay, patient (pt) started progressively improving and no longer remained irritable, depressed, and suicidal. Her mood and anxiety were improved and she started attending groups and meetings and started socializing. Patient denied any feelings of hopelessness, helplessness, and worthlessness, denied any problem with the sleep or appetite, denied suicidal ideation or homicidal ideation. Pt denied any auditory or visual hallucinations. She denied any withdrawal symptoms. Pt was treated with medications along with supportive therapy, milieu therapy and group therapy. Some changes were made in her current medications and patient was discharged on following medications. She tolerated these medications very well and denied any side effects. - Final Diagnosis (DSM 5) Condition upon Discharge: STABLE DSM 5: Major depressive disorder recurrent severe without psychotic features Opioid use disorder severe Opioid withdrawal Disposition: HOME/ ROUTINE Follow-up Treatment Plan: Followup: She was discharged to the [facility] methadone clinic. Education: Pt was educated and counseled about the risks and benefits of taking and not taking medications. Pt was educated and counseled about the risks of drinking and abusing drugs. Pt was educated and counseled to go to the ER or call 911 if pt develop suicidal ideation or homicidal ideation, worsening of symptoms or severe side effects of the meds. Prescriptions/Medication Reconciliation: Gabapentin [Neurontin] 300 mg PO BID #60 cap Mirtazapine [Remeron] 30 mg PO HS #30 tab traZODone [Desyrel] 50 mg PO HS PRN #30 tab PRN Reason: Insomnia - Smoking Cessation Smoking Cessation Medication prescribed: No - Antipsychotic Medications Pt discharged on 2 or more routine antipsychotic medications: No
== END 2018-04-01 15:13 | disposition home or self-care (01) | DRG 751 ==
LOC: C.ER 13:08 → C.5E 16:51
PROVIDERS: ADMIT Psychiatry & Neurology Psychiatry; ATTEND Psychiatry & Neurology Psychiatry
PROC: GZHZZZZ Group Psychotherapy (ICD-10-PCS; principal; 2018-03-29)
PROC: GZ56ZZZ Individual Psychotherapy, Supportive (ICD-10-PCS; 2018-03-29)
DX: F33.2 Major depressive disorder, recurrent severe without psychotic features (principal); R45.851 Suicidal ideations; I10 Essential (primary) hypertension; F11.23 Opioid dependence with withdrawal; J45.909 Unspecified asthma, uncomplicated; Z87.891 Personal history of nicotine dependence; F41.0 Panic disorder [episodic paroxysmal anxiety]

== ENCOUNTER 2018-08-15 12:06 | Emergency (ER) | payer MEDICAID ==
[2018-08-15 12:06] VITALS: BMI 35.0
[2018-08-15 12:13] VITALS: BP 147/92; PULSE 65; RESP 18; TEMP 97.6; O2SAT 96
[2018-08-15] MEDS ORDERED: Naproxen 550 mg Tab PO STA (12:51)
[2018-08-15] MEDS ORDERED: Naproxen 550 mg Tab PO ONE (13:04)
--- NOTE | 2018-08-15 14:07 | C.PDOC ---
History Of Present Illness 43 y/o female presents to the ED for evaluation of back pain. Patient states she was walking and tripped on uneven pavement, causing her to fall backwards hitting her low back on the sidewalk. She is now complaining of neck pain and low back pain. Denies any LOC or head trauma. Otherwise patient denies any visual changes, dizziness, SOB, numbness, weakness, chest pain, abdominal pain. Time Seen by Provider: 08/15/18 12:42 Chief Complaint (Nursing): Back Pain History Per: Patient History/Exam Limitations: no limitations Onset/Duration Of Symptoms: Days Current Symptoms Are (Timing): Still Present Quality Of Discomfort: "Pain" Severity: Mild Associated Symptoms: None Past Medical History Reviewed: Historical Data, Nursing Documentation, Vital Signs Vital Signs: Last Vital Signs Temp 97.6 F 08/15/18 12:10 Pulse 65 08/15/18 12:10 Resp 18 08/15/18 12:10 BP 147/92 H 08/15/18 12:10 Pulse Ox 96 08/15/18 12:10 - Medical History PMH: Anxiety (Diagnosed with prior to Bipolar Disorder diagnosis), Asthma (Denies Asthma hx), Bipolar Disorder (Recently diagnosed with Bipolar disorder in [facility]), Bronchitis, Depression (Diagnosed with prior to Bipolar Disorder Diagnosis), HTN (Lisinopril 10mg) Surgical History: - [facility] APPLICATION OF SPLINT (05/06/13) CL FX REDUC-FINGER (05/06/13) DETOXIFICATION SERVICES FOR SUBSTANCE ABUSE TREATMENT (02/14/17) ENDOMETRIAL ABLATION (01/24/13) GROUP PSYCHOTHERAPY (03/29/18) HYSTEROSCOPY (01/24/13) INDIV PSYCHOTHERAPY FOR SUBSTANCE ABUSE TREATMENT, SUPPORT (02/14/17) INDIVIDUAL PSYCHOTHERAPY, SUPPORTIVE (03/29/18) INTRODUCTION OF SERUM/TOX/VACCINE INTO MUSCLE, PERC APPROACH (05/17/17) MEDICATION MANAGEMENT (02/14/17) MEDS MGMT FOR SUBSTANCE ABUSE TREATMENT, OTH REPL MED (02/24/16) NEBULIZER THERAPY (02/09/13) Family History: States: Unknown Family Hx - Social History Hx Tobacco Use: Yes Hx Alcohol Use: No Hx Substance Use: No - Immunization History Hx Tetanus Toxoid Vaccination: Yes Hx Influenza Vaccination: No Hx Pneumococcal Vaccination: No Review Of Systems Constitutional: Negative for: Fever, Chills Eyes: Negative for: Vision Change Cardiovascular: Negative for: Chest Pain Respiratory: Negative for: Shortness of Breath Gastrointestinal: Negative for: Nausea, Vomiting Musculoskeletal: Positive for: Neck Pain, Back Pain Skin: Negative for: Rash, Lesions Neurological: Negative for: Weakness, Numbness, Headache, Dizziness Physical Exam - Physical Exam Appears: Well, Non-toxic, No Acute Distress, Other (Appears comfortable) Skin: Warm, Dry, No Rash Head: Atraumatic, Normacephalic Eye(s): bilateral: Normal Inspection, PERRL, EOMI Neck: Trachea Midline, Midline Cervical Tenderness (at approx C5-C6 level), Paracervical Tenderness (at approx C5-C6 level), No Step Off Deformity, Supple Chest: Symmetrical Cardiovascular: Rhythm Regular Respiratory: Normal Breath Sounds, No Decreased Breath Sounds, No Accessory Muscle Use, No Rales, No Rhonchi, No Wheezing Back: No Vertebral Tenderness (to thoracic or lumbar spine), Paraspinal Tenderness (Paralumbar tenderness, at approx. L2-L4 level) Extremity: No Deformity, No Swelling Extremity: Bilateral: Atraumatic, Normal Color And Temperature, Normal ROM Neurological/Psych: Oriented x3, Normal Speech, Normal Motor, Normal Sensation Gait: Steady ED Course And Treatment O2 Sat by Pulse Oximetry: 96 Pulse Ox Interpretation: Normal Progress Note: Patient given PO Flexeril and Naproxen. X-rays of c-spine and ls spine ordered. Disposition - Disposition Disposition Time: 14:00 Condition: STABLE Forms: [facility] ([place]) - Clinical Impression Clinical Impression: Neck pain, Low back pain - Scribe Statement The provider has reviewed the documentation as recorded by the Berenice Marquez Provider Attestation: All medical record entries made by the Chaoibe were at my direction and personally dictated by me. I have reviewed the chart and agree that the record accurately reflects my personal performance of the history, physical exam, medical decision making, and the department course for this patient. I have also personally directed, reviewed, and agree with the discharge instructions and disposition. Physician Patient Turnover Patient Signed Over To: Cee Hernandez Handoff Comments: pending xrays, reassessment
--- NOTE | 2018-08-15 15:23 | RAD ---
Date of service: 08/15/2018 PROCEDURE: Radiographs of the Lumbar Spine. HISTORY: low back pain after fall COMPARISON: No prior. FINDINGS: BONES: Normal alignment. No listhesis. No fracture. Few Schmorl's node like indentations are suggested. DISC SPACES: Unremarkable. OTHER FINDINGS: For purposes of this report T12 is considered with rudimentary elements. Extensive stool retention IMPRESSION: No fracture or subluxation. Extensive stool retention
--- NOTE | 2018-08-15 15:28 | RAD ---
Date of service: 08/15/2018 PROCEDURE: Cervical Spine Radiographs. HISTORY: Pain. COMPARISON: None available. FINDINGS: BONES: Alignment maintained. No fracture. Dens Intact. An anterior inferior well corticated ossification borders anterior inferior C5 vertebral body margin-limbus vertebrae-developmental variation here is inferred. Some trace early degenerative changes are also associated with it. A 1 mm similar limbus vertebrae just below it is also noted. Some minimal C3-4 left uncovertebral hypertrophy changes are noted Incidentally noted are bilateral C7 cervical ribs formations DISC SPACES: Normal. SOFT TISSUES: Normal. No prevertebral soft tissue swelling. OTHER FINDINGS: None. IMPRESSION: No acute fracture or destructive lesion noted. Developmental like limbus vertebrae suggested as above. Also noted are C7 cervical ribs Other findings as above.
== END 2018-08-15 15:04 | disposition home or self-care (01) ==
LOC: C.ER 12:06
DX: M54.2 Cervicalgia (principal); M54.5 Low back pain